=== PATIENT | male | born 1975 | race American Indian/Alaskan Native ===

== ENCOUNTER 2019-12-04 10:03 | Emergency (ER) | payer OTHER ==
[2019-12-04 10:44] VITALS: BP 165/116
--- NOTE | 2019-12-04 12:40 | Emergency Department Report ---
ED Male HPI - General Chief complaint: Urogenital-Male Stated complaint: SPERM CYST Time Seen by Provider: 12/04/19 12:35 Source: patient Mode of arrival: Ambulatory Limitations: No Limitations - History of Present Illness Initial comments: 44 YO AA MALE COMES TO ER WITH A SEVERAL MONTH HISTORY OF "SPERM CYST." HE IS HERE W HIS AND MOTHER. NO DYSURIA. NO FEVER/CHILL. NO PENILE DC. NO TESTICULAR PAIN Complaint: testicle swelling -: Gradual, month(s) Radiation: none Improves with: none Worsens with: none denies other symptoms - Related Data Sexually active: Yes ED Review of Systems ROS: Stated complaint: SPERM CYST Other details as noted in HPI Comment: All other systems reviewed and negative ED Past Medical Hx - Past Medical History Previous Medical History?: No - Surgical History Past Surgical History?: No - Family History Family history: no significant - Social History Substance Use Type: None ED Physical Exam - General Limitations: No Limitations General appearance: alert, in no apparent distress - Head Head exam: Present: atraumatic, normocephalic - Eye Eye exam: Present: normal appearance - ENT ENT exam: Present: mucous membranes moist - Neck Neck exam: Present: normal inspection - Respiratory Respiratory exam: Present: normal lung sounds bilaterally. Absent: respiratory distress - Cardiovascular Cardiovascular Exam: Present: regular rate, normal rhythm. Absent: systolic murmur, diastolic murmur, rubs, gallop - GI/Abdominal GI/Abdominal exam: Present: soft, normal bowel sounds - Rectal Rectal exam: Present: deferred - exam: Present: other (CYSTIC NODULE FOUND ON L TESTES; NO PAIN; NO ABSCESS). Absent: urethral discharge - Extremities Exam Extremities exam: Present: normal inspection - Back Exam Back exam: Present: normal inspection - Neurological Exam Neurological exam: Present: alert, oriented X3 - Psychiatric Psychiatric exam: Present: normal affect, normal mood - Skin Skin exam: Present: warm, dry, intact, normal color. Absent: rash ED Course Vital Signs 12/04/19 10:43 Temperature 98.4 F Pulse Rate 83 Respiratory 18 Rate Blood Pressure 165/116 O2 Sat by Pulse 98 Oximetry ED Medical Decision Making - Radiology Data Radiology results: report reviewed, image reviewed - Medical Decision Making NO DISCHARGE/CONCERN FOR STI NO DYSURIA NO FEVER OR CHILLS NO ABD PAIN HAS HAD FOR SEVERAL MONTHS US NOTED GIVEN THIS IS CHRONIC AND WITHOUT ACUTE INFLAMMATORY OR INFECTIOUS SYMPTOMS WILL DC WITH REFERRAL TO DR LOPEZ IN UROLOGY. PT EDUCATED THAT HIS BP ELEVATED TODAY- HE STATES ALWAYS HAPPENS WHEN HE COMES TO ER. HE WILL FOLLOW IT DC HOME AMBULATORY NON ILL NON TOXIC Vital Signs 12/04/19 10:43 Temperature 98.4 F Pulse Rate 83 Respiratory 18 Rate Blood Pressure 165/116 O2 Sat by Pulse 98 Oximetry - Differential Diagnosis RO TORSION Critical care attestation.: If time is entered above; I have spent that time in minutes in the direct care of this critically ill patient, excluding procedure time. ED Disposition Clinical Impression: Epididymal cyst, Elevated blood pressure reading Disposition: DC-01 TO HOME OR SELFCARE Is pt being admited?: No Does the pt Need Aspirin: No Condition: Stable Instructions: Testicular Self-examination (ED) Referrals: WOODY LOPEZ MD [Staff Physician] - 3-5 Days Time of Disposition: 13:37
--- NOTE | 2019-12-04 13:24 | Ultrasound Report ---
ULTRASOUND SCROTUM INDICATION: Generalized scrotal/testicular pain with swelling. Palpable lump on right. COMPARISON None available. FINDINGS: RIGHT TESTICLE: Measures 5.1 x 2.6 x 3.3 cm with expected color flow and appearance. RIGHT EPIDIDYMIS: Normal in size with a cyst measuring up to 4 mm. No additional significant abnormal ity. LEFT TESTICLE: Measures 4.7 x 2.3 x 3.1 cm with expected color flow and appearance. LEFT EPIDIDYMIS: No significant abnormality. HYDROCELE: None seen. VARICOCELE: None seen. ADDITIONAL FINDINGS: None. IMPRESSION: Small right epididymal cyst as above. Signer Name: Emil Lentz MD Signed: 12/04/2019 1:19 PM Workstation Name: [id number]
== END 2019-12-04 13:40 | disposition home or self-care (01) ==
LOC: ED 10:03
DX: L72.0 Epidermal cyst (principal); R03.0 Elevated blood-pressure reading, without diagnosis of hypertension
CPT/HCPCS: 93975

== ENCOUNTER 2019-12-11 13:48 | Day surgery (SDC) | payer OTHER ==
[~2019-12-11 13:48] MED LIST: ceFAZolin/Water 2 GM/20 ML 2 GM/20 ML SYRINGE IV NR
[2019-12-11] MEDS ORDERED: LACTATED RINGERS 1,000 ML IV SCH (14:35)
[2019-12-11] MEDS ORDERED: LIDOCAINE 2% UROJECT 10 ML JELLY ONE (15:08)
--- NOTE | 2019-12-11 15:09 | Anesthesia Day of Surgery ---
Anesthesia Day of Surgery - Day of Surgery Patient Examined: Yes Patient H&P Reviewed: Yes Patient is NPO: Yes
[2019-12-11] MEDS ORDERED: ONDANSETRON 4 MG/2 ML INJ IV PRN (15:13)
--- NOTE | 2019-12-11 15:13 | Anesthesia Consultation ---
Anesthesia Consult and Med Hx Date of service: 12/11/19 - Airway Anesthetic Teeth Evaluation: Good ROM Head & Neck: Adequate Mental/Hyoid Distance: Adequate Mallampati Class: Class II Intubation Access Assessment: Probably Good - Pre-Operative Health Status ASA Pre-Surgery Classification: ASA2 Proposed Anesthetic Plan: General - Pulmonary Hx Smoking: No Hx Sleep Apnea: No (SONYA PRE SCREEN LOW RISK.) - Cardiovascular System Hx Hypertension: Yes ("WATCHING"- NO MEDS YET) - Central Nervous System Hx Back Pain: Yes (BACK AND NECK PAIN) - Gastrointestinal Hx Gastroesophageal Reflux Disease: Yes ("Minor") - Hematic Hx Anemia: Yes (NOT RECENT , HX LOW IRON) Hx Sickle Cell Disease: No - Other Systems Hx Substance Use: Yes (MARIJUANA 2-4X PER DAY) Hx Cancer: No
[2019-12-11] MEDS ORDERED: HYDROmorphone 1 MG/1 ML INJ ONE (15:35)
[2019-12-11] MEDS ORDERED: PROPOFOL 200 MG/20 ML VIAL IV ONE ×2 (15:35→15:59)
[2019-12-11] MEDS ORDERED: WATER FOR IRRIG STERILE 1,000 ML BOTTLE IR ONE (16:08)
[2019-12-11] MEDS ORDERED: WATER FOR IRRIG STERILE 2000 ML IR ONE (16:08)
--- NOTE | 2019-12-11 16:37 | Short Stay Summary ---
Short Stay Documentation Date of service: 12/04/19 - History H&P: obtained from office - Allergies and Medications Current Medications: Allergies procaine [From Novocain] Allergy (Verified 12/09/19 12:32) Swelling Home Medications Medication Instructions Recorded Confirmed Last Taken Type No Known Home Medications [No 12/09/19 12/09/19 Unknown History Reported Home Medications] Active Medications Fentanyl (Sublimaze) 50 mcg IV Q5MIN PRN PRN Reason: Pain , Severe (7-10) Cefazolin Sodium (Ancef/Sterile Water 2 Gm/20 Ml) 2 gm in 20 mls @ 80 mls/hr IV PREOP NR; Protocol Stop: 12/11/19 23:59 Lactated Ringer's (Lactated Ringers) 1,000 mls @ 100 mls/hr IV DIRECT MARCELO Stop: 12/11/19 23:59 Last Admin: 12/11/19 15:25 Dose: 100 mls/hr Documented by: Ondansetron HCl (Zofran) 4 mg IV ONCE PRN PRN Reason: Nausea And Vomiting - Brief post op/procedure progress note Date of procedure: 12/11/19 Pre-op diagnosis: penile lesions, BPH Post-op diagnosis: same Procedure: cysto, rpg, Excision & CO2 laser ablation of lesions Anesthesia: GETA Surgeon: WOODY LOPEZ Estimated blood loss: none Pathology: list (penile lesions) Specimen disposition: to lab Condition: stable - Hospital course Hospital course: cipro,norco, silvadene cream (apply once a day) - Disposition Condition at discharge: Stable Disposition: DC- TO HOME OR SELFCARE Short Stay Discharge Plan Follow up with: PRIMARY CARE, [Primary Care Provider] - 7 Days
[2019-12-11] MEDS: fentaNYL 100 MCG/2 ML INJ IV PRN ×2 (17:05→17:30)
--- NOTE | 2019-12-11 17:26 | Post Anesthesia Evaluation ---
- Post Anesthesia Evaluation Patient Participated: Yes Airway Patent: Yes Stable Respiratory Function: Yes Nausea/Vomiting: No Temp > 96.8F: Yes Pain Manageable: Yes Adequeate Hydration: Yes Anesthesia Complications: No Block Receding Appropriately: Not Applicable Patient on Ventilator: No
--- NOTE | 2019-12-11 17:38 | Fluoroscopy Report ---
Bilateral retrograde pyelography INDICATION: Penile tumor FINDINGS: 9 views obtained from C-arm exam in the cystoscopy suite show retrograde injection of both ureters without definite stricture or filling defect on the left. Linear defect in the right renal co llecting system may be due to a partially duplicated right intrarenal collecting system. Total fluoroscopic time was 21 seconds. Signer Name: Mann Garcia MD Signed: 12/11/2019 5:33 PM Workstation Name: [id number]
[2019-12-11 18:40] VITALS: BP 138/96
--- NOTE | 2019-12-17 13:00 | Operative Report ---
PREOPERATIVE DIAGNOSES: Multiple penile lesions, benign prostatic hypertrophy. POSTOPERATIVE DIAGNOSIS: Multiple penile lesions, benign prostatic hypertrophy. PROCEDURE: Cystoscopy, bilateral retrograde pyelograms, excision and CO2 laser ablation of penile lesions (5) and 1 suprapubic lesion, all approximately 10 mm. SURGEON: Demetrio Tinajero MD ANESTHESIA: General. ESTIMATED BLOOD LOSS: Minimal. FLUIDS: Crystalloid. COMPLICATIONS: No complications. INDICATIONS: This 44-year-old gentleman seen in the office with multiple penile lesions with his , discussed options. He also had a history of nocturia x 3. He agreed to proceed with surgical intervention. DESCRIPTION OF PROCEDURE: The patient was taken to the operative suite, placed in a supine position. After adequate general anesthesia, placed in a dorsal lithotomy position, prepped and draped in a sterile fashion. All the lesions were at the base of the penis approximately 10 mm in diameter bilaterally. Initially, cystoscopy was performed with a 22-Yoruba Storz cystoscope, no urethral abnormalities, no lesions in the shaft of the penis. Prostate minimally obstructing. Bladder, no tumors or stones were noted. Bilateral retrograde pyelograms were obtained with an 8-Yoruba [place] catheter and 8 mL of contrast. No filling defects or obstruction. Next, using scissors and Adson pickups, excisions of the lesions were all performed at the base in the suprapubic area and actually one in the perineum. Using a CO2 laser on 4 ruelas, the base of the lesions as well as a rim of approximately a 5 mm rim of normal tissue was ablated with the CO2 laser on all lesions. A 2-0 Vicryl in interrupted fashion was then used to close the incisions. Silvadene cream was placed on them as well. The patient tolerated the procedure well. Rectal exam was benign. He was extubated and taken to recovery room in stable condition. JOB# [id number] [facility]
== END 2019-12-11 18:30 | disposition home or self-care (01) ==
LOC: OR 13:48
PROVIDERS: ATTEND Urology
DX: N40.0 Benign prostatic hyperplasia without lower urinary tract symptoms (principal); N48.89 Other specified disorders of penis; N50.3 Cyst of epididymis; I10 Essential (primary) hypertension; K21.9 Gastro-esophageal reflux disease without esophagitis; D64.9 Anemia, unspecified; Z79.899 Other long term (current) drug therapy; Z88.8 Allergy status to other drugs, medicaments and biological substances; Z71.3 Dietary counseling and surveillance; Z98.890 Other specified postprocedural states
CPT/HCPCS: 17110; 52005; 54057; 74420; 88305; A4217; J0690; J1170; J2704; J3010; J7120; Q9967